=== PATIENT | female | born 1975 | race Caucasian/White ===

== ENCOUNTER 2022-05-24 09:41 | Day surgery (SDC) | payer OTHER, SELFPAY ==
--- NOTE | 2022-05-23 13:46 | P.CONAN_ITS ---
Documented by User: Dasha Marie NP 05/23/22 13:46 HPI - Anesthesia Eval Consult details Narrative: 47yo F for Upper Endoscopy and Colonoscopy [facility] Past Medical History Medical History (Updated 05/23/22 @ 11:50 by Rhina Liz, RN) Bowel obstruction Chronic abdominal pain Endometriosis Hypothyroid Leg pain Migraine Urinary incontinence Surgical History Surgical History (Updated 05/23/22 @ 11:50 by Rhina Liz, RN) History of appendectomy Hx of hysterectomy Social History Social History Patient Tobacco Use Status: Never used Tobacco Use of substances other than those prescribed or required for medical reasons: Yes Substance Use Type Other:: CANABIS Substance Use Frequency: Weekly Are you DNR?: No Advance Directives: No Advance Directives Information Provided: Yes Meds Allergies Allergy/AdvReac Type Severity Reaction Status Date / Time HAWK Inhibitors Allergy Angioedema Verified 05/24/22 10:24 Penicillins [PCN] Allergy Anaphylaxis Verified 05/24/22 10:24 NSAIDS (Non-Steroidal AdvReac GI BLEEDS Verified 05/24/22 10:24 Anti-Inflamma Home Medications Medication Instructions Recorded Confirmed Last Taken Type clonazepam 0.5 mg tablet 1 tab PO TID PRN Anxiety 05/23/22 05/23/22 Unknown History cyanocobalamin (vitamin B-12) 1 tab PO DAILY 05/23/22 05/23/22 Unknown History 5,000 mcg capsule dicyclomine 10 mg/mL intramuscular 10 mg IM QID 05/23/22 05/23/22 Unknown History syringe gabapentin 300 mg capsule 1 cap PO TID 05/23/22 05/23/22 Unknown History lactulose 10 gram/15 mL oral 15 ml PO DAILY PRN constipation 05/23/22 05/23/22 Unknown History solution levothyroxine 50 mcg tablet 1 tab PO DAILY 05/23/22 05/23/22 Unknown History magnesium gluconate 27 mg 1 tab PO DAILY 05/23/22 05/23/22 Unknown History magnesium (500 mg) tablet ondansetron HCl 4 mg tablet 1 tab PO Q8H PRN nausea/vomiting 05/23/22 05/23/22 Unknown History oxycodone 5 mg tablet 1 tab PO BID PRN pain 05/23/22 05/23/22 Unknown History sennosides 8.6 mg tablet (senna) 1 - 2 tab PO BEDTIME PRN 05/23/22 05/23/22 Unknown History constipation sumatriptan succinate 100 mg tablet mg PO 05/23/22 Unknown History Exam Exam Date and Time: May 23, 2022 134 Assessment and Plan Assessment Anesthesia Assessment: Chart Reviewed Documented by User: Singh So MD 05/24/22 16:35 PMF Past Medical History Medical History (Updated 05/23/22 @ 11:50 by Rhina Liz RN) Bowel obstruction Chronic abdominal pain Endometriosis Hypothyroid Leg pain Migraine Urinary incontinence Functional capacity: independent ambulation Family History Family history of problems with anesthesia: No Surgical History Surgical History (Updated 05/23/22 @ 11:50 by Rhina Liz RN) History of appendectomy Hx of hysterectomy History of Problems with Anesthesia: No Social History Social History Patient Tobacco Use Status: Never used Tobacco Use of substances other than those prescribed or required for medical reasons: Yes Substance Use Type Other:: CANABIS Substance Use Frequency: Weekly Are you DNR?: No Advance Directives: No Advance Directives Information Provided: Yes Meds Allergies Allergy/AdvReac Type Severity Reaction Status Date / Time HAWK Inhibitors Allergy Angioedema Verified 05/24/22 10:24 Penicillins [PCN] Allergy Anaphylaxis Verified 05/24/22 10:24 NSAIDS (Non-Steroidal AdvReac GI BLEEDS Verified 05/24/22 10:24 Anti-Inflamma Home Medications Medication Instructions Recorded Confirmed Last Taken Type clonazepam 0.5 mg tablet 1 tab PO TID PRN Anxiety 05/23/22 05/23/22 Unknown History cyanocobalamin (vitamin B-12) 1 tab PO DAILY 05/23/22 05/23/22 Unknown History 5,000 mcg capsule dicyclomine 10 mg/mL intramuscular 10 mg IM QID 05/23/22 05/23/22 Unknown History syringe gabapentin 300 mg capsule 1 cap PO TID 05/23/22 05/23/22 Unknown History lactulose 10 gram/15 mL oral 15 ml PO DAILY PRN constipation 05/23/22 05/23/22 Unknown History solution levothyroxine 50 mcg tablet 1 tab PO DAILY 05/23/22 05/23/22 Unknown History magnesium gluconate 27 mg 1 tab PO DAILY 05/23/22 05/23/22 Unknown History magnesium (500 mg) tablet ondansetron HCl 4 mg tablet 1 tab PO Q8H PRN nausea/vomiting 05/23/22 05/23/22 Unknown History oxycodone 5 mg tablet 1 tab PO BID PRN pain 05/23/22 05/23/22 Unknown History sennosides 8.6 mg tablet (senna) 1 - 2 tab PO BEDTIME PRN 05/23/22 05/23/22 Unknown History constipation sumatriptan succinate 100 mg tablet mg PO 05/23/22 Unknown History Exam Airway Mallampati Class: II TM Dist: >3cm Neck ROM: Full Loose/Missing/Broken Teeth: Yes Heart: S1,S2 Lungs: b/l breath sounds Assessment and Plan Assessment Anesthesia Assessment: Anesthesia Plan Discussed Final Anesthetic Review Family History of Problems with Anesthesia: No History of Problems with Anesthesia: No NPO: Yes ASA Class: II Final Preanesthetic Review: Meds/Allgs Chart Reviewed, Consent Obtained/Reviewed and Anes Risks/Benef Reviewed Patient Risk: Intermediate Procedure Risk: Intermediate Anesthetic Plan Anesthetic Plan: MAC: Disposition: Standard PACU
[2022-05-24 10:29] VITALS: BP 128/77; PULSE 76; RESP 16; TEMP 36.4; O2SAT 98; BMI 18.3
[2022-05-24] MEDS: Lactated Ringers 1,000 ML 100 ML IVCONT (10:37)
--- NOTE | 2022-05-24 11:26 | MHC.SHP ---
Pre-Procedural Eval Section A Date of Service: 05/24/22 The patient is an INPATIENT: No Changes since office visit: No Cold of Flu in the past 2 weeks, No New Medical Problems, No Changes in Medication and No Patient answered all questions The History & Physical has been completed within 30 days and I have reviewed it.: Yes Section B Chief Complaint: dysphagia, diarrhea,nausea with vomiting Allergies: Allergies Allergy/AdvReac Type Severity Reaction Status Date / Time HAWK Inhibitors Allergy Angioedema Verified 05/24/22 10:24 Penicillins [PCN] Allergy Anaphylaxis Verified 05/24/22 10:24 NSAIDS (Non-Steroidal AdvReac GI BLEEDS Verified 05/24/22 10:24 Anti-Inflamma Plan I have reviewed the history and physical and performed a pertinent physical examination on my patient. No changes have occurred unless specified.
--- NOTE | 2022-05-24 12:20 | P.BOP_ITS ---
Brief Operative Note Date of Service: 05/24/22 Pre-op diagnosis: dysphagia nausea and vomiting diarrhea Post-op diagnosis: same Surgeon: Lucas Headley Anesthesia: MAC Was an Medical Laboratory Assistant used for this Procedure?: No Estimated blood loss (mL): 5 Pathology: other Condition: stable Disposition: PACU
[2022-05-24 12:24] VITALS: BP 104/56; PULSE 89; RESP 16; TEMP 36.6; O2SAT 98
[2022-05-24 12:39] VITALS: BP 131/85; PULSE 81; RESP 18; TEMP 36.7; O2SAT 98
--- NOTE | 2022-05-24 13:19 | OP_ITS ---
SURGEON: Lucas Headley MD INDICATIONS: Dysphagia, nausea and vomiting, and diarrhea. PREOPERATIVE DIAGNOSIS: POSTOPERATIVE DIAGNOSIS: PROCEDURE PERFORMED: Upper endoscopy with biopsy, colonoscopy to the terminal ileum with biopsy. ESTIMATED BLOOD LOSS: COMPLICATIONS: ANESTHESIA: Monitored anesthesia care. ASSISTANTS: SPECIMENS: DESCRIPTION OF PROCEDURE: History and physical performed. The risks and benefits of the procedure were explained to the patient. Informed consent was obtained. The patient was placed in the left lateral decubitus position. The Olympus video gastroscope was introduced into the esophagus, stomach, and duodenum. Examination was performed. The scope was removed. She was repositioned for colonoscopy. A digital rectal exam was performed and was found to be normal. The Olympus pediatric video colonoscope was introduced into the rectum and advanced to the cecum without difficulty. The cecum was identified by transillumination, palpation, and identification of ileocecal valve. Examination was performed. The scope was removed. She tolerated both procedures well and was taken to recovery area in stable condition. The procedure was performed on 05/24/2022. FINDINGS: Upper endoscopy: 1. Esophagus: The esophagus was normal. There was no esophagitis. Biopsies were obtained from the EG junction. 2. Stomach: The stomach showed no evidence of masses, ulcers, or polyps. Antral biopsies were obtained to evaluate for H pylori. 3. Duodenum: The bulb and second portion were normal. Biopsies were obtained to assess for malabsorption. Colonoscopy: The terminal ileum was normal. The visualized colonic mucosa was normal. The quality of the prep was good. No polyps were identified. Retroflexed examination was normal. Random biopsies were obtained from the terminal ileum and sigmoid. IMPRESSION: Normal upper endoscopy, normal colonoscopy. RECOMMENDATION: Follow up the biopsy results. Colon cancer screening is recommended in 10 years for average risk individuals. MD JULI Sr/QUIQUE / [id number] [facility]
== END 2022-05-24 14:00 | disposition home or self-care (01) ==
PROVIDERS: PCP Registered Nurse; Visit Provider Internal Medicine Gastroenterology
PROC: (CPT 45380; principal; 2022-05-24 11:20)
DX: R13.19 Other dysphagia (principal); R11.2 Nausea with vomiting, unspecified; R19.7 Diarrhea, unspecified; G43.909 Migraine, unspecified, not intractable, without status migrainosus; Z79.899 Other long term (current) drug therapy; Z88.0 Allergy status to penicillin; Z88.8 Allergy status to other drugs, medicaments and biological substances
CPT/HCPCS: 45380; 43239; 88305; 88342; J2250